=== PATIENT | male | born 1955 | race Caucasian/White ===

== ENCOUNTER → 2023-11-23 12:32 | Outpatient (REF) | payer OTHER, SELFPAY | LOC: RAD 12:32 | PROVIDERS: ATTENDING PHYSICIAN Surgery Vascular Surgery; FAMILY PHYSICIAN Internal Medicine | DX: Z01.818 Encounter for other preprocedural examination (principal) | CPT/HCPCS: 93985 ==

== ENCOUNTER → 2023-12-07 09:49 | Day surgery (SDC) | payer OTHER, SELFPAY ==
--- NOTE | 2023-12-04 12:07 | PTCARENOTE ---
Pt presents very agitated and upset during the Nurse Call interview, stating it is unacceptable to have to review the medication list after he had submitted it to the physician's office. RN attempted to de-escalate the situation and reinforced the
importance of reviewing home med. list prior to the sx. Pt agreeable to provide medication list to the best of his ability.
[2023-12-07] VITALS (12 sets, daily range): BP systolic 127–169; BP diastolic 70–87; BMI 25.9
[2023-12-07 10:22] LABS: Hematocrit 35.1 % (39.0-52.0); Hemoglobin 11.9 g/dL (13.0-18.0); Mean Corp Hgb Conc. 33.9 g/dL (33.0-37.0); Mean Corpuscular Hgb 30.1 pg (27.0-31.0); Mean Corpuscular Volume 88.6 fL (80.0-94.0); Mean Platelet Volume 8.9 fL (7.4-10.4); Platelet Count 316 10^3/uL (130-400); Red Blood Cell Count 3.96 10^6/uL (4.70-6.10); Red Cell Dist. Width 14.1 % (11.5-14.5); White Blood Cell Count 9.4 10^3/uL (4.8-10.8)
[2023-12-07 10:41] LABS: PT 15.3 Sec (11.4-14.6)
[2023-12-07 10:42] LABS: APTT 32.9 Sec (23.4-35.0)
[2023-12-07 10:44] LABS: Glucose - Point of Care 127 mg/dl (70-99)
[2023-12-07] MEDS: NSS 500 IV (10:45)
[2023-12-07] MEDS: VANCOCIN 200 IV (10:45)
[2023-12-07] MEDS: PERIDEX 0.12% ORAL RINSE 15 ML PO (10:46)
[2023-12-07] MEDS: BACTROBAN NASAL 1 GRAM NASAL (10:46)
[2023-12-07 11:11] LABS: Blood Urea Nitrogen 71 mg/dl (9-20); Calcium 8.7 mg/dl (8.4-10.2); Carbon Dioxide 15 mmol/L (22-30); Chloride 111 mmol/L (98-107); Estimated Creatinine Clearance 14 ml/min; Glucose 136 mg/dl (70-99); Sodium 141 mmol/L (135-145); eGFR 11.68
--- NOTE | 2023-12-07 11:24 | PTCARENOTE ---
Critical lab result creatinine 5.1. Dr. Wagner aware. patient has a documented history of ESRD. Patient lives alone. Dr. Wagner aware that patient's neighbor is the person who will be checking on patient over the next 24 hours. Yusef arrived with an
acebandage to his left stump and a foam bandaid to the top of his right foot.
--- NOTE | 2023-12-07 11:24 | W.SUR.PREOP ---
Pre-Operative Surgical Note
-
I have examined this patient prior to the performance of the scheduled procedure.
The patient's condition is unchanged from the time of the current History and
Physical and the patient is able to undergo the scheduled procedure.
--- NOTE | 2023-12-07 12:45 | W.SUR.POST ---
Surgical Immediate Post Op
Note
Pre Op Diagnosis: ESRD
Post Op Diagnosis: ESRD
Procedure Performed: LUE AV fistula creation - brachiocephalic
Primary Surgeon: Bernard
Assist: Jose Alfredo CODROVA
Anesthesia: LMA
Estimated Blood Loss: 5cc
Fluids: See anesthesia flow sheet
Drains/Shunts: none
Specimens/Cultures: none
Doppler/Duplex/Angio (Y/N): Y
Complications: none
Operative Findings: +thrill
[2023-12-07 13:17] LABS: Glucose - Point of Care 151 mg/dl (70-99)
--- NOTE | 2023-12-07 13:35 | OR.RPT ---
Operative Report
Operative Report
PROCEDURE DATE: 12/07/2023
Preoperative diagnosis: End-stage renal disease approaching hemodialysis.
Postoperative diagnosis: Same
Procedure: Left upper extremity brachiocephalic arteriovenous fistula creation
Surgeon: Bernard
Billposting Supervisor: GUANAKO Veliz required for all aspects of procedure including assistance with traction/countertraction, assistance with following of suture line, assistance with closure.
Complications: None
Anesthesia: General
Indications for procedure:
Chronic kidney disease advanced, approaching hemodialysis. Referred for AV access creation. Risk/benefits/alternatives also discussed. Patient understood all wish to proceed.
Description of procedure:
Patient was identified brought to the operating room placed on the table in supine position. After the adequate administration of anesthesia and perioperative antibiotics he was prepped and draped in the standard surgical fashion. A standard
preoperative timeout was undertaken and everybody was in agreement the plan. A transverse incision was made in the proximal volar aspect of the forearm just distal to the antecubital fossa. This was carried through skin subcutaneous tissue. The
antecubital extension of the cephalic vein was identified and carefully dissected away from surrounding structures and great care to avoid any injury to structures. There was a confluence of several veins here including the basilic vein. All the
other branches were ligated between silk ties and then divided. As such I was able to mobilize a suitable length of cephalic vein. Once I done this I then deepened my dissection in the medial aspect of the incision site through the fascial layer.
The brachial artery was carefully identified and carefully dissected away from surrounding structures take great care to avoid injury to structures. I passed a vessel loop around approximately. Distally I identified the brachial bifurcation and
both radial and ulnar branches were controlled with Vesseloops after careful circumferential dissection. Next I gave the patient 3000 units of intravenous heparin. I then ligated the cephalic vein distally in my field with a silk tie and a clip.
I then transected it. I distended under heparinized saline. It distended very well. I marked the anterior surface under distention to avoid any kinking or twisting. The vein was suitable size but just to be sure I ran a 3 mm dilator through
which passed without any difficulty whatsoever. Next I tightened my double looped Vesseloops on the artery proximally and distally. I then made an arteriotomy on the very distal brachial artery at about the bifurcation, with 11 blade extended
using a Hussein scissor. I spatulated the cephalic vein and sewed an end to side anastomosis using a running 6-0 Prolene suture. Prior to completing and tying down my suture line I backbled and forebled the [place] artery. Next I released my bulldog
clamp on the vein and then released my Vesseloops on the artery. There was an excellent thrill in the fistula. There was a palpable pulse in the radial artery at the wrist. At this point I was very satisfied. I irrigated. I achieved and
confirmed full hemostasis. We then closed in layers using 3-0 Vicryl deep dermal layer followed by 4-0 Monocryl subcuticular stitch. Dermabond was applied. The patient tolerated the procedure well.
[2023-12-07] MEDS: ROXICODONE 5 MG PO (14:27)
[2023-12-07 15:20] LABS: Glucose - Point of Care 170 mg/dl (70-99)
== END | disposition home or self-care (01) ==
LOC: CATH 09:49
PROVIDERS: ATTENDING PHYSICIAN Surgery Vascular Surgery; FAMILY PHYSICIAN Internal Medicine; OTHER PHYSICIAN Internal Medicine Interventional Cardiology
DX: I12.0 Hypertensive chronic kidney disease with stage 5 chronic kidney disease or end stage renal disease (principal); N18.6 End stage renal disease; E11.22 Type 2 diabetes mellitus with diabetic chronic kidney disease; Z99.2 Dependence on renal dialysis; I73.9 Peripheral vascular disease, unspecified; Z86.73 Personal history of transient ischemic attack (TIA), and cerebral infarction without residual deficits; Z79.84 Long term (current) use of oral hypoglycemic drugs; Z79.02 Long term (current) use of antithrombotics/antiplatelets
CPT/HCPCS: 36821; 80048; 82962; 85027; 85610; 85730; 86850; 86900; 86901; 93005

== ENCOUNTER → 2024-01-25 08:57 | Outpatient (REF) | payer OTHER, SELFPAY | LOC: RAD 08:57 | PROVIDERS: ATTENDING PHYSICIAN Registered Nurse | DX: I77.0 Arteriovenous fistula, acquired (principal) | CPT/HCPCS: 93990 ==